=== PATIENT | female | born 1970 | race Caucasian/White ===

== ENCOUNTER 2020-11-30 17:39 | Emergency (ER) | payer BC, SELFPAY ==
[2020-11-30 17:42] VITALS: BP 159/108; PULSE 44; RESP 17; TEMP 36.6; O2SAT 96; BMI 32.1
--- NOTE | 2020-11-30 17:52 | NURSING ---
NO OLD EKGS
[2020-11-30 18:03] VITALS: O2SAT 98
--- NOTE | 2020-11-30 18:03 | EKG12_ITS ---
Test Reason : CP Blood Pressure : / mmHG Vent. Rate : 044 BPM Atrial Rate : 044 BPM P-R Int : 150 ms QRS Dur : 100 ms QT Int : 448 ms P-R-T Axes : 010 -23 013 degrees QTc Int : 383 ms Marked sinus bradycardia Abnormal ECG Confirmed by VEE SPEARS, DEMETRIO ([id number]), image editor NEDA ACOSTA ([id number]) on 12/05/2020 8:46:16 AM Referred By: Confirmed By:DEMETRIO BAXTER MD
--- NOTE | 2020-11-30 18:06 | EDS_ITS ---
HPI History of Present Illness Chief Complaint: Chest Pain Informant: patient Onset/Context/Timing Onset: Today Activity at onset: gradual Timing: Waxes and wanes Quality: Positive for Aching and Pressure Location: Right Parasternal Current Severity: Mild Maximum Severity: Moderate Narrative Narrative: Patient presents secondary to right chest pain for the past 2 hours. Patient states she was nauseated throughout the day. She vomited around 3 PM and shortly after developed right-sided chest pain. She denies shortness of breath. Pain is not worse with deep breath. She denies cardiac history personally but does have a strong family history. PFSH PFS Home Medications B Complex-Vitamin B12 12,000 mcg BID 11/30/20 [History Last Taken Unknown] Glucosamine 11/30/20 [History Last Taken Unknown] albuterol mcg INHALATION 11/30/20 [History Last Taken Unknown] biotin 10,000 mcg PO DAILY 11/30/20 [History Last Taken Unknown] calcium 600 mg PO Q8H 11/30/20 [History Last Taken Unknown] cholecalciferol (vitamin D3) [Vitamin D3] 100 mcg PO DAILY 11/30/20 [History Last Taken Unknown] citalopram [Celexa] 40 mg PO DAILY 11/30/20 [History Last Taken Unknown] etanercept [Enbrel] 50 mg SUBCUT QWEEK 11/30/20 [History Last Taken Unknown] famotidine [Pepcid] 20 mg PO DAILY 11/30/20 [History Last Taken Unknown] ferrous sulfate [iron] 325 mg PO DAILY 11/30/20 [History Last Taken Unknown] fish,flaxseed [id number] [Fish, Flax andBorage Oil(Prim)] 1 cap PO DAILY 11/30/20 [History Last Taken Unknown] fluticasone propionate [Flonase] 1 spray INTRANASAL BID 11/30/20 [History Last Taken Unknown] fluticasone propionate [Flovent] 1 puff INHALATION BID 11/30/20 [History Last Taken Unknown] folic acid 1,000 mcg DAILY 11/30/20 [History Last Taken Unknown] hydroxyzine HCl [Atarax] 25 mg PO QHS 11/30/20 [History Last Taken Unknown] leflunomide [Arava] 20 mg PO DAILY 11/30/20 [History Last Taken Unknown] loratadine [Claritin] 10 mg PO DAILY 11/30/20 [History Last Taken Unknown] milk thistle 1,000 mg PO DAILY 11/30/20 [History Last Taken Unknown] zinc 100 mg PO DAILY 11/30/20 [History Last Taken Unknown] Allergy/AdvReac Type Severity Reaction Status Date / Time Opioids - Morphine Analogues Allergy Shortness Verified 11/30/20 17:42 of breath Penicillins Allergy Anaphylaxis Verified 11/30/20 17:42 prochlorperazine Allergy CONFUSION Verified 11/30/20 17:42 [From Compazine] spironolactone Allergy HYPOTENSION Verified 11/30/20 17:42 [From Aldactone] Surgical History History of cholecystectomy History of hysterectomy History of Karen-en-Y gastric bypass Social History Smoking Status: Never smoker ROS ROS ED Constitutional Constitutional ED: Denies chills or fever(s) Eyes Eyes: Denies change in vision ENT ENT ED: Denies sore throat Cardiovascular Cardiovascular: Reports chest pain Respiratory/Chest Respiratory/Chest: Denies cough or dyspnea Gastrointestinal Gastrointestinal: Reports nausea and vomiting; Denies abdominal pain or diarrhea Genitourinary Genitourinary ED: Denies dysuria Musculoskeletal Musculoskeletal: Denies back pain Integumentary Denies rash Neurologic Neurologic: Denies headache(s) or weakness Psychiatric Psychiatric: Denies anxiety or depression Allergic/Immunologic Allergic/Immunologic ED: Denies urticaria EXAM Physical Exam Const Vital Signs: 11/30/20 17:42 11/30/20 18:03 11/30/20 18:08 Temperature 97.8 F Temperature Source Temporal Pulse Rate 44 L Respiratory Rate 17 Respiratory Effort Normal Non-Labored Respiratory Pattern Normal Blood Pressure 159/108 H Blood Pressure Mean 125 Pulse Ox 96 98 Oxygen Delivery Method Room Air Room Air 11/30/20 18:40 11/30/20 19:40 11/30/20 22:00 Temperature Temperature Source Pulse Rate 48 L 51 L 51 L Respiratory Rate 18 16 16 Respiratory Effort Respiratory Pattern Blood Pressure 127/94 H 134/85 H 129/73 H Blood Pressure Mean 105 101 Pulse Ox 96 98 94 Oxygen Delivery Method Room Air Room Air Positive well nourished and well developed General Appearance ED: well developed HEENT Reports normocephalic and head/scalp atraumatic Eyes PERRL and EOMs intact bilaterally Neck supple Chest Wall inspection of chest normal Chest Narrative: Tenderness to palpation along the right sternal border. No crepitus. Resp normal respiratory effort and clear to auscultation bilaterally Cardio regular rate and regular rhythm GI normal to inspection, nondistended, normoactive bowel sounds Palpation: soft Extremity normal to inspection Neuro oriented x3 and no sensory deficits noted Sensorium / Orientation: alert Motor Exam: strength 5/5 throughout Psych mental status grossly normal Skin no rashes or lesions noted Heart Score History: Slightly/Non-Suspicious ECG: Normal Age: >45 - <65 years Risk Factors: 1 or 2 Risk Factors Troponin: </= Normal Limit Score: 2 MDM MDM MDM Narrative Medical decision making narrative: EKG, chest x-ray, labs obtained. Patient was given aspirin and Zofran. Lab Data Attestation: I reviewed the patient's lab results. Labs: Laboratory Results - last 24 hr 11/30/20 11/30/20 11/30/20 17:55 17:55 19:58 WBC 7.6 RBC 4.99 Hgb 14.6 Hct 45.3 MCV 90.8 MCH 29.3 MCHC 32.2 RDW Std Deviation 41.0 RDW Coeff of Rachelle 12.3 Plt Count 287 MPV 10.3 Immature Gran % (Auto) 0.100 Neut % (Auto) 29.5 L Lymph % (Auto) 56.1 H [place] % (Auto) 9.9 Eos % (Auto) 3.3 Baso % (Auto) 1.1 H Absolute Neuts (auto) 2.3 Absolute Lymphs (auto) 4.27 Nucleated RBC % 0 Sodium 140 Potassium 3.7 Chloride 105 Carbon Dioxide 29.0 Anion Gap 6 BUN 9 Creatinine 0.70 Estim Creat Clear Calc 93.50 Est GFR (MDRD) Af Amer 114 Est GFR (MDRD) Non-Af 95 BUN/Creatinine Ratio 12.9 Glucose 87 Calcium 9.1 Troponin I High Sens 6.4 6.0 Radiography Chest X-Ray - ED: 1 View, Read by ED Physician, Normal, Heart, Lungs and Mediastinum Diagnostic Testing: Radiology Impression Chest X-Ray 11/30/20 18:15 IMPRESSION: No acute radiographic abnormalities. Electronically Signed: Reinier Garsia MD at 18:30 EDT Tel , Service support , EKG Initial EKG: Attestation: I personally reviewed and interpreted this EKG as follows: Interpretation: Sinus Bradycardia (Sinus bradycardia at [address] change.) Treatment and Re-Evaluation Comments:: Patient does report significant bradycardia since her Karen-en-Y gastric bypass surgery in 2018. On repeat evaluation patient resting comfortably. She was given Tylenol for pain. Patient's labs are unremarkable. Repeat 2-hour troponin remains negative. Patient now thinks that she may have initially injured her chest a couple weeks ago when helping her roommate up from the floor. When she vomited today she pulled the same area and had worsened pain. Pain is reproducible and is consistent with chest wall strain. She will use Tylenol or lidocaine gel topically to help control her pain. Discharge Plan Triage Chief Complaint: Chest Pain ED Provider: Denise Zapata Dx/Rx/DC Orders Clinical Impression: Acute chest wall pain Instructions: ED Chest Pain, Noncardiac Prescriptions: No Action B Complex-Vitamin B12 12,000 mcg BID RF: 0 calcium 600 mg Capsule 600 mg PO Q8H RF: 0 zinc 100 mg Tablet 100 mg PO DAILY RF: 0 citalopram [Celexa] 40 mg Tablet 40 mg PO DAILY RF: 0 milk thistle 500 mg Capsule 1,000 mg PO DAILY RF: 0 leflunomide [Arava] 20 mg Tablet 20 mg PO DAILY RF: 0 famotidine [Pepcid] 20 mg Tablet 20 mg PO DAILY RF: 0 biotin 10,000 mcg Capsule 10,000 mcg PO DAILY RF: 0 ferrous sulfate [iron] 325 mg (65 mg iron) Tablet 325 mg PO DAILY RF: 0 hydroxyzine HCl [Atarax] 25 mg Tablet 25 mg PO QHS RF: 0 albuterol 90 mcg/actuation Aerosol INHALATION RF: 0 fluticasone propionate [Flonase] 50 mcg/actuation [place],Suspension 1 spray INTRANASAL BID RF: 0 loratadine [Claritin] 10 mg Tablet 10 mg PO DAILY RF: 0 folic acid 800 mcg Tablet 1,000 mcg DAILY RF: 0 Flovent 110 mcg/actuation Hfa Aerosol Inhaler 1 puff INHALATION BID RF: 0 Enbrel 50 mg/mL (1 mL) Syringe 50 mg SUBCUT QWEEK RF: 0 Vitamin D3 100 mcg (4,000 unit) Capsule 100 mcg PO DAILY RF: 0 Fish, Flax andBorage Oil(Prim) 400-400-200 mg Capsule 1 cap PO DAILY RF: 0 Glucosamine RF: 0 Referrals: RUBY MORSE [Other] - 1 Week if not improving Disposition Disposition: Home, Self Care Discharge Date/Time: 11/30/20 22:01
--- NOTE | 2020-11-30 18:15 | RAD_ITS ---
INDICATION: chest pain EXAMINATION/TECHNIQUE: X-RAY - XR Chest 1 View COMPARISON: None. FINDINGS: The lungs are clear. The cardiomediastinal silhouette is unremarkable. No pleural effusion or pneumothorax. No acute osseous abnormalities. RAD/Chest 1 View (Portable) IMPRESSION: No acute radiographic abnormalities. Electronically Signed: Reinier Garsia MD at 18:30 EDT Tel , Service support ,
[2020-11-30 18:16] LABS: Absolute Lymphocyte Count 4.27 X10^3/uL (0.83-4.51); Absolute Neutrophil Count 2.3 X10^3/uL (2.0-7.7); Basophil# 0.08 X10^3/uL; Basophil% 1.1 % (0-1); Eosinophil# 0.25 X10^3/uL; Eosinophils% 3.3 % (0-5); Hematocrit 45.3 % (37-47); Hemoglobin 14.6 g/dL (12.0-15.0); Lymphocyte # 4.27 X10^3/ul (0.83-4.51); Lymphocyte % 56.1 % (19-41); Mean Corp Hgb Conc 32.2 g/dL (32-36); Mean Corpuscular Hgb 29.3 pg (27.0-32.0); Mean Corpuscular Volume 90.8 fL (81-99); Mean Platelet Vol. 10.3 fl (6.2-12.0); Monocyte# 0.75 X10^3/uL; Monocyte% 9.9 % (0-10); NRBC Flagged by Analyzer 0 % (0-5); Neutrophil # 2.25 X10^3/uL (2.7-7.7); Neutrophil % 29.5 % (47-70); Platelet Count 287 K/mm3 (150-450); RBC Distribution Width CV 12.3 % (11.6-14.6); Red Blood Count 4.99 M/mm3 (4.2-5.4); White Blood Count 7.6 K/mm3 (4.4-11.0)
[2020-11-30 18:28] LABS: Anion Gap 6 (5-15); BUN 9 mg/dL (7-18); BUN/Creat Ratio 12.9 RATIO (10-20); Calcium,Total 9.1 mg/dL (8.5-10.1); Chloride 105 mmol/L (98-107); EST Glomerular Filtration Rate 95 mL/min (>60); Est Glom Filt Rate - Afr Amer 114 mL/min (>60); Glucose 87 mg/dL (74-106); Potassium 3.7 mmol/L (3.5-5.1); Sodium Level 140 mmol/L (136-145); Troponin-I HS 6.4 pg/mL (3.0-53.7)
[2020-11-30] MEDS: Ondansetron 4 MG/2 ML Vial IV (18:28)
[2020-11-30] MEDS: Aspirin 81 MG TAB.CHEW 324 MG PO (18:28)
[2020-11-30 18:40] VITALS: BP 127/94; PULSE 48; RESP 18; O2SAT 96
[2020-11-30 19:40] VITALS: BP 134/85; PULSE 51; RESP 16; O2SAT 98
[2020-11-30] MEDS: Acetaminophen 500 MG Tablet 1000 MG PO (19:59)
[2020-11-30 22:00] VITALS: BP 129/73; PULSE 51; RESP 16; O2SAT 94
== END 2020-11-30 22:01 | disposition home or self-care (01) ==
PROVIDERS: Emergency Provider Emergency Medicine
DX: R07.89 Other chest pain (principal); R11.0 Nausea; R00.1 Bradycardia, unspecified; Z79.899 Other long term (current) drug therapy; Z98.84 Bariatric surgery status
CPT/HCPCS: 71045; 80048; 84484; 85025; 93005; 96374; 99284; A4216; J2405